=== PATIENT | male | born 1985 | race American Indian/Alaskan Native ===

== ENCOUNTER 2019-12-04 16:50 | Emergency (ER) | payer SELFPAY ==
--- NOTE | 2019-12-04 18:41 | Emergency Department Report ---
Suture/Staple Removal - HPI Chief Complaint: Laceration/Recheck/Suture Stated Complaint: STITCHES INHAND REMOVAL Time Seen by Provider: 12/04/19 17:47 When Sutures or [place] Placed: 11-14 Days Ago Wound Location: Left middle finger and left hand ED Review of Systems ROS: Stated complaint: STITCHES INHAND REMOVAL Other details as noted in HPI Comment: All other systems reviewed and negative ED Past Medical Hx - Past Medical History Previous Medical History?: Yes Hx Seizures: Yes Hx Psychiatric Treatment: No - Social History Smoking Status: Current Every Day Smoker Substance Use Type: Alcohol - Medications Home Medications: Home Medications Medication Instructions Recorded Confirmed Last Taken Type cephALEXin [Keflex] 500 mg PO Q12HR 7 Days #14 cap 12/04/19 Unknown Rx Suture Removal Exam - Exam General: Vital signs noted. No distress. Alert and acting appropriately. Wound: Yes Tenderness, Yes Pus, No Pathologic Erythema, No Drainage, No Wound Dehiscence Other Systems: All other systems reviewed and are unremarkable. ED Recheck MDM - Differential Diagnosis Suture/Staple Removal Critical care attestation.: If time is entered above; I have spent that time in minutes in the direct care of this critically ill patient, excluding procedure time. ED Disposition Clinical Impression: Visit for suture removal, Cellulitis Disposition: [id number] TO HOME OR SELFCARE Is pt being admited?: No Does the pt Need Aspirin: No Condition: Stable Instructions: Cellulitis (ED) Additional Instructions: Complete antibiotics as prescribed. Pain medication as needed such as Tylenol or ibuprofen. Follow-up with a primary care provider if his symptoms persist or gets worse. Prescriptions: cephALEXin [Keflex] 500 mg PO Q12HR 7 Days #14 cap Referrals: [facility] [Provider Group] - 3-5 Days Forms: Work/School Release Form(ED)
[2019-12-04] MEDS ORDERED: IBUPROFEN 600 MG TAB PO ONE (18:43)
[2019-12-04 18:44] VITALS: BP 107/70
== END 2019-12-04 19:00 | disposition home or self-care (01) ==
LOC: ED 16:50
DX: L03.012 Cellulitis of left finger (principal); Z48.02 Encounter for removal of sutures; F17.200 Nicotine dependence, unspecified, uncomplicated; R56.9 Unspecified convulsions; Z79.899 Other long term (current) drug therapy
CPT/HCPCS: 99282